=== PATIENT | female | born 1990 | race Caucasian/White ===

== ENCOUNTER → 2024-05-25 | Outpatient (REF) | LOC: M EMP 09:13 | PROVIDERS: ATTEND Family Medicine | DX: Z11.52 Encounter for screening for COVID-19 (principal); Z20.822 Contact with and (suspected) exposure to COVID-19 ==

== ENCOUNTER → 2024-06-01 | Outpatient (REF) | payer OTHER, BC ==
[~2024-06-01] MED LIST: BENA25CA4 PO; COLA100C5 PO; FIOR1CAP; MAPA500T2 PO; MOTR200T44 PO; NUPE1OIN2 TOP; PRENTAB55 PO; SUDA30TA8 PO
== END ==
LOC: M SFHCWAGY 12:55 → MERGE 12:55
PROVIDERS: ATTEND Obstetrics & Gynecology
DX: Z12.4 Encounter for screening for malignant neoplasm of cervix (principal)
CPT/HCPCS: 87624; G0123